=== PATIENT | male | born 1940 | race Caucasian/White ===

== ENCOUNTER 2016-08-18 10:59 | Outpatient (CLI) | payer MEDICARE, OTHER ==
[2012-01-14 10:55] VITALS: BP 124/82
== END 2016-08-18 11:00 ==
LOC: CARD 10:59
PROVIDERS: ATTEND Internal Medicine Cardiovascular Disease
DX: Z95.2 Presence of prosthetic heart valve (principal)
CPT/HCPCS: G0463

== ENCOUNTER 2016-10-31 10:42 | Emergency (ER) | payer MEDICARE, OTHER ==
--- NOTE | 2016-10-31 10:57 | ED Physician Documentation ---
General Adult - HISTORIAN Historian: patient - HPI Stated Complaint: L calf pain Chief Complaint: General Adult Onset: hours Timing: still present Severity: moderate Further Comments: yes (Pt is a 75 yo male with pain and mild swelling in L calf , distal to popliteal fossa. Pain has come on over the past week, but was most noticable after pt fell from a squatting postion while working on a car. No sob , chest pain, or other sx.) - ROS CONST: no problems EYES/ENT: none CVS/RESP: none GI/: none MS/SKIN/LYMPH: calf pain (L) - PAST HX Past History: other (heart dz, mitral valve repair, HTN, arthritis.) Allergies/Adverse Reactions: Allergies Allergy/AdvReac Type Severity Reaction Status Date / Time No Known Allergies Allergy Verified 01/12/12 18:00 Home Medications: Ambulatory Orders Medication Instructions Recorded Aspirin [Yassine] 325 mg PO DAILY u2 09/16/12 Gluc Boston/Chondro Boston A/Vit C/Mn 1 each PO DAILY 10/31/16 [Glucosamine 1,500 Complex Cp] Meloxicam [Mobic] 15 mg PO PRN 10/31/16 - SOCIAL HX Smoking History: non-smoker (never smoked) - FAMILY HX Family History: No - VITAL SIGNS Vital Signs: Vital Signs Temp Pulse Resp BP Pulse Ox 124/82 01/14/12 10:00 - REVIEWED ASSESSMENTS Nursing Assessment Reviewed: Yes Vitals Reviewed: Yes Progress - Progress Progress: D-dimer = 1207 suspicious for DVT u/s not available at [facility] today. transfer to . Hosp. Dr. Soriano. General Adult Physical Exam - PHYSICAL EXAM GENERAL APPEARANCE: no distress EENT: pharynx normal NECK: normal inspection, supple RESPIRATORY: no resp distress, chest non-tender, breath sounds normal CVS: reg rate & rhythm, heart sounds normal ABDOMEN: soft, no organomegaly, normal bowel sounds SKIN: warm/dry, normal color EXTREMITIES: other (tenderness, cord, L calf; L calf circumference is 1/2 inch larger vs R. Pos Nancy's sign.) NEURO: oriented X3, motor nml, sensation nml Discharge Clincal Impression: L calf pain, ? DVT Referrals: Tono Mendiola MD [Primary Care Provider] - Home Medications: Ambulatory Orders Aspirin [Yassine] 325 mg PO DAILY u2 09/16/12 Gluc [place]/Chondro [place] A/Vit C/Mn [Glucosamine 1,500 Complex Cp] 1 each PO DAILY Meloxicam [Mobic] 15 mg PO PRN 10/31/16 Condition: Stable Disposition: 02 XFER [facility] HOSP Decision to Admit: NO Decision Time: 12:44
[2016-10-31 10:58] VITALS: BP 148/84
[2016-10-31 11:31] LABS: BASOPHILS % 0.6 (0.0-1.5); EOSINOPHILS % 2.1 % (0.0-6.8); MEAN CORPUSCULAR HEMOGLOBIN 29.5 pg (28.0-34.0); MEAN CORPUSCULAR VOLUME 89.5 fl (80.0-100.0); NEUTROPHILS # 5.4 # k/uL (1.4-7.7)
[2016-10-31 11:45] LABS: eGFR (African) > 60; eGFR (Non-African) > 60
== END 2016-10-31 13:00 | disposition short-term general hospital (02) ==
LOC: ED 10:42
DX: M79.662 Pain in left lower leg (principal)
CPT/HCPCS: 80053; 85025; 85379; 85610; 99284

== ENCOUNTER 2017-06-02 09:16 | Outpatient (CLI) | payer MEDICARE, OTHER ==
[2017-06-02 09:43] LABS: BASOPHILS % 0.3 (0.0-1.5); EOSINOPHILS % 0.7 % (0.0-6.8); MEAN CORPUSCULAR HEMOGLOBIN 29.6 pg (28.0-34.0); MEAN CORPUSCULAR VOLUME 89.8 fl (80.0-100.0); MONOCYTES % 6.3 % (0.0-11.0); NEUTROPHILS # 7.3 # k/uL (1.4-7.7)
[2017-06-02 10:15] LABS: eGFR (African) > 60; eGFR (Non-African) > 60
== END 2017-06-02 09:17 ==
LOC: LAB 09:16
PROVIDERS: ATTEND Family Medicine
DX: R50.9 Fever, unspecified (principal)
CPT/HCPCS: 36415; 80053; 85025; 86618; 86666; 86757

== ENCOUNTER 2017-11-02 12:15 | Outpatient (CLI) | payer MEDICARE, OTHER | END 2017-11-02 12:16 | LOC: CARD 12:15 | PROVIDERS: ATTEND Internal Medicine Cardiovascular Disease | DX: I35.8 Other nonrheumatic aortic valve disorders (principal); Z86.79 Personal history of other diseases of the circulatory system | CPT/HCPCS: G0463 ==